=== PATIENT | female | born 1965 | race Caucasian/White ===

== ENCOUNTER 2023-08-22 23:19 | Emergency (ER) | payer MEDICAID, SELFPAY ==
--- NOTE | 2023-08-22 | ECG_ITS ---
Test Reason : CHEST PAIN Blood Pressure : / mmHG Vent. Rate : 056 BPM Atrial Rate : 056 BPM P-R Int : 136 ms QRS Dur : 082 ms QT Int : 450 ms P-R-T Axes : 069 061 072 degrees QTc Int : 434 ms Sinus bradycardia Otherwise normal ECG No previous ECGs available Referred By: Generic ED Physician Electronically Signed By:ANKIT BRADLEY
--- NOTE | ~2023-08-22 | XR_ITS ---
EXAMINATION: XR CHEST CLINICAL INFORMATION: Cough. Shortness of breath. COMPARISON: None available. TECHNIQUE: 2 views of the chest were obtained. FINDINGS: Mild dependent atelectasis at the left lung base. No consolidation, pneumothorax, or pleural effusion. Cardiac and mediastinal contours are normal. Degenerative disc disease is present in the thoracic spine. Surgical hardware is suspected over the cervical spine. Cholecystectomy clips are present in right upper quadrant. XR/XR chest 2V IMPRESSION: Mild dependent atelectasis at the left lung base. No acute pulmonary findings.
[2023-08-22 23:36] VITALS: BP 143/62; PULSE 62; RESP 18; TEMP 36.4; O2SAT 96; BMI 31.6
[2023-08-22 23:39] LABS: MANUAL DIFF FLAG NO
[2023-08-22 23:41] LABS: Basophils Absolute Auto 0.1 X10*3/uL (0.0-0.2); Basophils Percent Auto 0.8 % (0-2); Eosinophils Absolute Auto 0.2 X10*3/uL (0.0-0.4); Eosinophils Percent Auto 1.9 % (0-4); Hematocrit 35.6 % (37.0-47.0); Hemoglobin 11.2 g/dl (12.0-16.0); Imm Gran Abs Auto 0.04 X10*3/uL (0.00-0.03); Imm Gran Pct Auto 0.3 % (0.0-0.4); Lymphocytes Absolute Auto 2.3 X10*3/uL (1.2-4.9); Lymphocytes Percent Auto 19.6 % (20-40); Mean Corpuscular HGB Conc 31.5 g/dl (31.0-35.0); Mean Corpuscular Hemoglobin 24.1 pg (27.0-33.0); Mean Corpuscular Volume 76.7 fL (80.0-98.0); Mean Platelet Volume 8.5 fL (9.4-12.3); Monocytes Absolute Auto 1.4 X10*3/uL (0.1-1.2); Monocytes Percent Auto 11.3 % (2-11); Neutrophils Absolute Auto 7.9 x10*3/uL (2.0-8.3); Neutrophils Percent Auto 66.1 % (45-73); Platelet Count 376 X10*3/uL (160-400); Red Blood Count 4.64 X10*6/uL (4.20-5.50); Red Cell Distribution Width 18.7 % (11.0-16.0)
[2023-08-22 23:55] LABS: Alanine Aminotransferase 8 U/L (0-31); Albumin Level 3.8 g/dL (3.5-5.0); Alkaline Phosphatase 90 U/L (39-117); Anion Gap 16 (12-20); Aspartate Amino Transferase 11 U/L (5-31); Bilirubin Total 0.2 mg/dL (0.0-1.0); Blood Urea Nitrogen 21 mg/dL (9-16); Calcium 9.6 mg/dL (8.4-10.2); Carbon Dioxide 24 mmol/L (22-29); Chloride 105 mmol/L (96-108); Estimated Glomerular Filt Rate 46; Glucose Random 123 mg/dL (60-115); Potassium 4.4 mmol/L (3.3-5.1); Sodium 141 mmol/L (135-145); Total Protein 7.5 g/dL (6.5-8.0)
--- NOTE | 2023-08-22 23:58 | ED.CHESTPAIN ---
HPI - Chest Pain General Chief Complaint: Chest Pain Stated Complaint: CP from coughing, asthmatic Time Seen by Provider: 08/22/23 23:46 Source: patient, RN notes reviewed and old records reviewed Mode of arrival: ambulatory Limitations: no limitations History of Present Illness HPI narrative: 58-year-old female with past medical history significant for asthma, diabetes presents for evaluation of cough, congestion Patient reports that she has been sick for several months however worsening today. She versus cough, chest pain with coughing. She believes that her symptoms were related to her ?asthmatic bronchitis. Denies any fevers or chills. She states a couple of weeks ago she gave a ride to a neighbor who ended up testing positive for COVID-19. The patient reports that she tested twice and was negative each time Denies any recent travel. Denies any abdominal pain, nausea vomiting or diarrhea She reports her primary doctor recently changed her nebulizer medication Related Data Previous Rx's Medication Instructions Recorded azithromycin 250 mg tablet See Rx Instructions PO .COMPLEX #6 08/23/23 tabs prednisone 20 mg tablet 40 mg (2 x 20 mg) PO DAILY #10 tabs 08/23/23 Allergies Allergy/AdvReac Type Severity Reaction Status Date / Time acetaminophen [From Tylenol] Allergy Palpitation Verified 08/22/23 23:36 s codeine Allergy Palpitation Verified 08/22/23 23:36 s Review of Systems Constitutional: Constitutional: Denies body ache(s), Denies chills, Reports fatigue, Denies fever(s) and Denies headache(s) ENT: Denies headache(s) Cardiovascular: Cardiovascular: Reports dyspnea Respiratory: Respiratory: Reports chest congestion, Reports cough, Reports pain with cough, Reports dyspnea and Denies wheezing Gastrointestinal: Gastrointestinal: Denies abdominal pain, Denies nausea and Denies vomiting Musculoskeletal: Musculoskeletal: Denies back pain Integumentary/Breasts: Skin/Breast: Denies rash Neurologic: Denies headache(s) Endocrine: Endocrine: Reports fatigue Allergic/Immunologic: Allergic/Immunologic: Denies wheezing FOR[facility]LY [facility] Social History Social History Advance Directives: No Advance Directives Information Provided: No Physical Exam Vital Signs: Vital Signs: Last Vital Signs Temp 97.5 F 08/22/23 23:36 Pulse 62 08/22/23 23:36 Resp 18 08/22/23 23:36 BP 143/62 H 08/22/23 23:36 Pulse Ox 96 08/22/23 23:36 O2 Del Method Room Air 08/22/23 23:36 BMI result Body Mass Index 31.6 Const: General: healthy appearing, comfortable, no acute distress, alert and awake Nutritional Appearance: well nourished Orientation/consciousness: patient oriented x3 HEENT: Head: Yes normocephalic and Yes atraumatic Throat: Yes posterior oropharynx normal Eyes: Eyelids: Yes eyelids normal Conjunctivae: conjunctivae normal Sclerae: sclerae normal Corneas: corneas normal Pupils: Equal, round and reactive pupils present EOM: EOMs intact bilaterally Neck: Neck: Yes full ROM Resp: Effort & Inspection: normal respiratory effort, able to speak in complete sentences and not labored Auscultation: wheezes (Faint wheezing heard in the bilateral bases) Cardio: Rate: regular rate Rhythm: regular rhythm GI: Inspection: No distended Palpation (GI): Soft to palpation, not firm, nontender, no guarding and not rigid Auscultation: normoactive bowel sounds Skin: General skin exam: elasticity normal Neuro: General: patient oriented x3 Cranial nerves: Yes Equal, round and reactive pupils present and Yes Bilaterally intact EOM present Cognition (Neuro): normal cognition Medical Decision Making Medical Decision Making [facility] Narrative: 58-year-old female presents for evaluation of cough, congestion, flu-like symptoms. She reports a history of asthma. She is very faint expiratory wheeze on exam. Her vital signs are stable. She reports chest pain with coughing. Plan for EKG, basic labs, chest x-ray and viral swabs. Differential Diagnosis Differential Diagnoses: The differential diagnosis associated with the presentation includes Viral syndrome Upper respiratory infection Bronchitis Asthma exacerbation Influenza COVID-19 Pneumonia Lab Data [facility] Lab Attestation statement: I reviewed the patient's lab results. Mild leukocytosis to 12.0 K. mild anemia with a hemoglobin 11.2 and hematocrit of 35.6. No previous labs for comparison. No significant electrolyte abnormalities. 08/22/23 23:35 08/22/23 23:35 Labs: Lab Results 08/22/23 Range/Units 23:35 WBC 12.0 H (4.8-10.8) X10*3/uL RBC 4.64 (4.20-5.50) X10*6/uL Hgb 11.2 L (12.0-16.0) g/dl Hct 35.6 L (37.0-47.0) % MCV 76.7 L (80.0-98.0) fL MCH 24.1 L (27.0-33.0) pg MCHC 31.5 (31.0-35.0) g/dl RDW 18.7 H (11.0-16.0) % Plt Count 376 (160-400) X10*3/uL MPV 8.5 L (9.4-12.3) fL Immature Gran % (Auto) 0.3 (0.0-0.4) % Neut % (Auto) 66.1 (45-73) % Lymph % (Auto) 19.6 L (20-40) % [place] % (Auto) 11.3 H (2-11) % Eos % (Auto) 1.9 (0-4) % Baso % (Auto) 0.8 (0-2) % Lymph # (Auto) 2.3 (1.2-4.9) X10*3/uL [place] # (Auto) 1.4 H (0.1-1.2) X10*3/uL Eos # (Auto) 0.2 (0.0-0.4) X10*3/uL Baso # (Auto) 0.1 (0.0-0.2) X10*3/uL Abs Immat Gran (auto) 0.04 H (0.00-0.03) X10*3/uL Absolute Neuts (auto) 7.9 (2.0-8.3) x10*3/uL Absolute Nucleated RBC 0.000 (0.0-0.012) X10*3/uL Nucleated RBC % (auto) 0.0 (0.0-0.2) /100WBC Sodium 141 (135-145) mmol/L Potassium 4.4 (3.3-5.1) mmol/L Chloride 105 (96-108) mmol/L Carbon Dioxide 24 (22-29) mmol/L Anion Gap 16 (12-20) BUN 21 H (9-16) mg/dL Creatinine 1.20 (0.5-1.4) mg/dL Estim Creat Clear Calc 54.0 Estimated GFR 46 Random Glucose 123 H (60-115) mg/dL Calcium 9.6 (8.4-10.2) mg/dL Total Bilirubin 0.2 (0.0-1.0) mg/dL AST 11 (5-31) U/L ALT 8 (0-31) U/L Alkaline Phosphatase 90 (39-117) U/L Troponin I High Sens 3.1 (<3.5-17.0) ng/L B-Natriuretic Peptide 50 (<100) pg/mL Total Protein 7.5 (6.5-8.0) g/dL Albumin 3.8 (3.5-5.0) g/dL Influenza Type A (PCR) NEGATIVE (Negative) Influenza Type B (PCR) NEGATIVE (Negative) RSV RNA Qual (PCR) NEGATIVE (Negative) SARS-CoV-2 RNA (RT-PCR) NEGATIVE (Negative) Independent Interpretation I performed an independent interpretation of an: EKG (Sinus bradycardia rate of 56 beats minute. No ischemic changes) and Plain X-Ray (No focal infiltrate) Radiology Impression Discussion of test interpretation with radiology: I have reviewed the radiologist's reading. Radiologist Impression: Mild dependent atelectasis at the left lung base. No acute pulmonary findings Discharge Plan Discharge Clinical Impression: Acute upper respiratory infection Patient Disposition: Home, Self-Care Instructions: Upper Respiratory Infection (ED) Additional Instructions: Take azithromycin as directed. Take prednisone 40 mg daily for the next 5 days Continue all your inhalers as prescribed Return for new or worsening symptoms Prescriptions: New azithromycin 250 mg tablet See Rx Instructions .ROUTE .COMPLEX Qty: 6 0RF Rx Instructions: For 250 mg dose pack: take 500 mg today (day 1), then 250 mg for 4 days (days 2-5) prednisone 20 mg tablet 40 mg PO DAILY Qty: 10 0RF
[2023-08-23] LABS: Troponin-I High Sensitivity 3.1 ng/L (<3.5-17.0)
[2023-08-23 00:01] LABS: B Type Natriuretic Peptide 50 pg/mL (<100)
[2023-08-23 00:17] LABS: Influenza A PCR NEGATIVE (Negative); Influenza B PCR NEGATIVE (Negative); Resp Syncy Virus RNA Qual PCR NEGATIVE (Negative); SARS COV2 PCR INHOUSE NEGATIVE (Negative)
== END 2023-08-23 01:29 | disposition home or self-care (01) ==
PROVIDERS: Emergency Provider Emergency Medicine
DX: J06.9 Acute upper respiratory infection, unspecified (principal); J45.909 Unspecified asthma, uncomplicated; E11.9 Type 2 diabetes mellitus without complications; Z11.52 Encounter for screening for COVID-19; Z20.828 Contact with and (suspected) exposure to other viral communicable diseases
CPT/HCPCS: 0241U; 71046; 80053; 83880; 84484; 85025; 93005; 99283

== ENCOUNTER → 2023-08-22 23:26 | Outpatient (BNV) | payer MEDICAID, SELFPAY | PROVIDERS: Emergency Provider Emergency Medicine; Visit Provider Internal Medicine | DX: R00.1 Bradycardia, unspecified (principal); R07.9 Chest pain, unspecified | CPT/HCPCS: 93010 ==